=== PATIENT | female | born 2000 | race Caucasian/White ===

== ENCOUNTER 2018-03-27 06:08 | Inpatient (IN) | payer MEDICAID ==
[~2018-03-27] VITALS: Ht 162.6 cm; Wt 46.3 kg
[2018-03-27] MEDS ORDERED: NORG1TAB10 PO (06:18)
[2018-03-27] MEDS ORDERED: IV NORMAL SALINE 1000 ML BAG IV ONE (06:30)
--- NOTE | 2018-03-27 06:32 | NUR ---
DR HAWA HUSSEIN MD AT BEDSIDE FOR MSE. PT PRESENTS TO ER W/ C/O INCREADINS RLQ ABD PAIN RADIATING TO RT FLANK. PT ALSO STATES SHE HAD 3 EPISODES OF [employer].
[2018-03-27 06:35] LABS: *BILIRUBIN,URIN NEGATIVE (NEGATIVE); *BLOOD, URINE 1+ (NEGATIVE); *CLARITY,URINE CLEAR (CLEAR); *COLOR,URINE YELLOW (YELLOW); *KETONES,URINE TRACE (NEGATIVE); *PROTEIN,URINE 1+ (NEGATIVE); LEUKOCYTE ESTERASE ,URINE NEGATIVE (NEGATIVE); NITRITE, URINE NEGATIVE (NEGATIVE); PH,URINE 6.5 (5.0-8.0); UGLUCOSE NEGATIVE (NEGATIVE)
[2018-03-27 06:39] LABS: *URINE HCG, QUAL NEGATIVE (NEGATIVE)
[2018-03-27] MEDS ORDERED: ONDANSETRON IV *ER 4 MG/2 ML VIAL IV ONE (06:45)
[2018-03-27] MEDS ORDERED: MORPHINE SULFATE 4 MG/1 ML DISP.SYRIN IV ONE (06:45)
[2018-03-27 06:50] LABS: BACTERIA,URINE FEW /HPF (NONE SEEN); MUCUS,URINE FEW /LPF (0-FEW); RBC,URINE 0-3 /HPF (0-3); SQUAMOUS EPITHELIAL CELL,UR FEW /HPF (NONE SEEN)
[2018-03-27 06:54] LABS: BASOPHILS # (AUTO) 0.1 K/uL (0.0-8.0); BASOPHILS % (AUTO) 0.4 % (0.0-2.0); EOSINOPHILS % (AUTO) 0.2 % (0.0-7.0); HEMATOCRIT 44.7 % (31.2-41.9); HEMOGLOBIN 15.5 g/dL (10.9-14.3); LYMPHOCYTES # (AUTO) 1.2 K/uL (20.0-40.0); LYMPHOCYTES % (AUTO) 8.6 % (20.5-74.5); MEAN CORPUSCULAR HEMOGLOBIN 33.6 uug (24.7-32.8); MEAN CORPUSCULAR HGB CONC 35 g/dL (32.3-35.6); MONOCYTES # (AUTO) 1.2 K/uL (2.0-10.0); MONOCYTES % (AUTO) 8.2 % (0-11); NEUTROPHILS # (AUTO) 11.9 K/uL (1.8-8.9); NEUTROPHILS % (AUTO) 82.6 % (31.5-64.5); PLATELET COUNT (AUTO) 209 K/uL (179-408); RED BLOOD CELL COUNT(AUTO) 4.61 MIL/uL (3.63-4.92); WHITE BLOOD COUNT (AUTO) 14.4 K/uL (3.8-11.8)
[2018-03-27] MEDS ORDERED: ONDANSETRON 4 MG/2 ML VIAL ONE (06:56)
[2018-03-27] MEDS ORDERED: MORPHINE SULFATE 4 MG/1 ML DISP.SYRIN ONE (06:56)
[2018-03-27] MEDS ORDERED: IOHEXOL 300MG/ML 100 ML INFUS..BTL ONE (07:00)
[2018-03-27] MEDS ORDERED: IV NORMAL SALINE 250 ML IV ONE (07:00)
[2018-03-27] MEDS ORDERED: SWABABLE VALVE TRANSFER SET EA MC ONE (07:00)
[2018-03-27 07:08] LABS: CREATININE 0.7 mg/dL (0.6-1.3); POTASSIUM 3.4 mmol/L (3.5-5.1)
--- NOTE | 2018-03-27 07:11 | NUR ---
REPORT GIVEN TO DAY SHIFT RN. ASSUMING PT CARE AT THIS TIME.
[2018-03-27 07:13] LABS: BILIRUBIN,DIRECT 0.2 mg/dL (0.0-0.2); BILIRUBIN,TOTAL 1.1 mg/dL (0.2-1.0); TOTAL PROTEIN, SERUM 7.9 g/dL (6.4-8.2)
--- NOTE | 2018-03-27 07:30 | NUR ---
PT IS RESTING IN BED COMFORTABLY. NO S/S OF ACUTE DISTRESS.
[2018-03-27] MEDS ORDERED: CEFTRIAXONE 1 G in IV DEXTROSE 5% 50 ML IV ONE (07:45)
[2018-03-27] MEDS ORDERED: HYDROMORPHONE 2 MG/1 ML DISP.SYRIN ONE (07:58)
[2018-03-27] MEDS ORDERED: CEFTRIAXONE 1 G VIAL ONE (07:58)
[2018-03-27] MEDS ORDERED: HYDROMORPHONE 1 MG/1 ML DISP.SYRIN IV ONE (08:00)
--- NOTE | 2018-03-27 08:25 | NUR ---
REPORT WAS GIVEN TO RN M/S. PT WAS TRANSFERED TO ROOM #219.
[2018-03-27 09:28] VITALS: BP 106/69
[2018-03-27] MEDS ORDERED: MAGNESIUM HYDROXIDE 30 ML LIQUID UDC PO PRN (09:30)
[2018-03-27] MEDS ORDERED: Z GUARD REMEDY PASTE 57 GM TUBE TOP PRN (09:30)
[2018-03-27] MEDS ORDERED: HYDROCODONE/APAP 5-325MG TABLET PO PRN (09:30)
[2018-03-27] MEDS ORDERED: ACETAMINOPHEN 325 MG TABLET PO PRN (09:30)
--- NOTE | 2018-03-27 09:30 | NUR ---
Received this admission from ER per michael, this 18 yo female with the diagnosis of abdominal pain. Transferred to bed comfortably. Routine admission care rendered. Awake, alert, oriented x 4, able to move all extremities on purpose. Dr. Mathews seen patient, with admitting orders
[2018-03-27] MEDS: IV NS 1000 ML 1,000 ML IV PRN (09:34)
[2018-03-27] MEDS: MORPHINE SULFATE 2 MG/1 ML DISP.SYRIN IV PRN ×3 (09:35→17:40)
--- NOTE | 2018-03-27 09:35 | NUR ---
Complaining of abdominal pain. Morphine IV given as ordered. IVF started, infusing to right AC
[2018-03-27 11:30] VITALS: BP 102/61
[2018-03-27] MEDS: POTASSIUM CHLORIDE 50 ML IV SCH ×2 (12:48→14:37)
--- NOTE | 2018-03-27 13:00 | NUR ---
K 3.4. Potassium IV given as ordered
--- NOTE | 2018-03-27 13:25 | NUR ---
Crying, complaining of abdominal pain. Morphine IV given as ordered. with relief.
[2018-03-27] MEDS: ONDANSETRON 4 MG/2 ML VIAL IV PRN ×2 (15:06→21:08)
[2018-03-27 15:08] VITALS: BP 116/74
--- NOTE | 2018-03-27 15:30 | NUR ---
With nausea, Zofran IV given no vomiting noted
--- NOTE | 2018-03-27 18:09 | NUR ---
Still with intermittent nausea. Complaining of adominalpian, Morphine IV given. IVF Infusing
--- NOTE | 2018-03-27 19:30 | NUR ---
Received patient in stable condition at start of shift with no acute distress. Pertinent assessment completed. Patient is A/Ox4 & able to make all her needs known. Vital signs within range. Patient complaining of right sided abdominal pain. Will medicate per MD order & reassess pain level. Noted with Right AC IV running with NS at 75cc/hr. Call light in reach. Will continue to monitor through shift.
[2018-03-27 20:00] VITALS: BP 105/69
[2018-03-28] MEDS: IV NS 1000 ML 1,000 ML IV PRN (00:33)
[2018-03-28] MEDS: MORPHINE SULFATE 2 MG/1 ML DISP.SYRIN IV PRN ×3 (00:58→10:31)
[2018-03-28 04:00] VITALS: BP 101/57
--- NOTE | 2018-03-28 05:56 | NUR ---
Patient slept intermittently through the night. No acute distress noted. Vital signs within range. Continues to have right abdominal pain, relieved by medication. Pain management provided. All needs attended to promptly. Safety measures implemented. Call light within reach. Will endorse to day shift nurse.
[2018-03-28 06:20] LABS: BASOPHILS % (AUTO) 0.2 % (0.0-2.0); EOSINOPHILS # (AUTO) 0.1 K/uL (0.0-0.7); EOSINOPHILS % (AUTO) 1.3 % (0.0-7.0); HEMATOCRIT 39.2 % (31.2-41.9); HEMOGLOBIN 13.9 g/dL (10.9-14.3); LYMPHOCYTES # (AUTO) 1.7 K/uL (20.0-40.0); MEAN CORPUSCULAR HEMOGLOBIN 33.5 uug (24.7-32.8); MEAN CORPUSCULAR HGB CONC 35 g/dL (32.3-35.6); MEAN CORPUSCULAR VOLUME 94.9 fL (75.5-95.3); MONOCYTES # (AUTO) 1.2 K/uL (2.0-10.0); MONOCYTES % (AUTO) 11.5 % (0-11); NEUTROPHILS # (AUTO) 7.1 K/uL (1.8-8.9); PLATELET COUNT (AUTO) 193 K/uL (179-408); RED BLOOD CELL COUNT(AUTO) 4.13 MIL/uL (3.63-4.92); WHITE BLOOD COUNT (AUTO) 10.1 K/uL (3.8-11.8)
[2018-03-28 06:47] LABS: BILIRUBIN,DIRECT 0.1 mg/dL (0.0-0.2); BILIRUBIN,TOTAL 0.6 mg/dL (0.2-1.0); CREATININE 0.7 mg/dL (0.6-1.3); MAGNESIUM 1.8 mg/dL (1.8-2.4); PHOSPHOROUS 2.5 mg/dL (2.5-4.9); POTASSIUM 3.8 mmol/L (3.5-5.1); TOTAL PROTEIN, SERUM 6.3 g/dL (6.4-8.2)
--- NOTE | 2018-03-28 07:52 | NUR ---
Sleeping, comfortable. IVF infusing
[2018-03-28] MEDS ORDERED: CEFTRIAXONE 1 G in IV DEXTROSE 5% 50 ML IV SCH (08:00)
[2018-03-28] MEDS ORDERED: PANTOPRAZOLE SODIUM 40 MG VIAL IV SCH (09:00)
--- NOTE | 2018-03-28 10:31 | NUR ---
Complaining of right sided flank pain. Morphine given as ordered. Resting after
[2018-03-28 11:39] VITALS: BP 115/61
[2018-03-28] MEDS ORDERED: NORGESTIMATE ETHINYL ESTRADIOL PO SCH (11:45)
[2018-03-28 15:20] VITALS: BP 110/65
--- NOTE | 2018-03-28 15:45 | NUR ---
With discharge order to home. Saline lock removed. DC instruction given to patient, verbalized understanding. Went home per wheelchair in fair condition, not in distress, afebrile
== END 2018-03-28 15:45 | disposition home or self-care (01) | DRG 282 ==
LOC: ER 06:18 → MED 08:18
PROVIDERS: ADMIT Internal Medicine; ATTEND Internal Medicine
DX: K85.90 Acute pancreatitis without necrosis or infection, unspecified (principal); E43 Unspecified severe protein-calorie malnutrition; E87.6 Hypokalemia; M06.9 Rheumatoid arthritis, unspecified; Z87.442 Personal history of urinary calculi
CPT/HCPCS: 36415; 76700; 76856; 83690; 83735; 84100; 84703; 85025; 87086; A4663; C9113; J0696; J1170; J2270; J2405; J3480; J3490; J7030; J7050; J7060; Q9967